=== PATIENT | female | born 1970 | race Two or more races ===

== ENCOUNTER 2017-05-06 13:30 | Day surgery (SDC) | payer OTHER ==
[~2017-05-06] VITALS: Ht 157.5 cm; Wt 77.3 kg
[2017-05-06 13:59] VITALS: Ht 157.5 cm; Wt 77.3 kg
[2017-05-06] MEDS ORDERED: FERR325T5 PO (14:14)
[2017-05-06] MEDS ORDERED: VALS160T26 PO (14:14)
[2017-05-06] MEDS ORDERED: TRAM50TA2 PO (14:14)
[2017-05-06] MEDS ORDERED: ASPI81TA3 PO (14:14)
[2017-05-06] MEDS ORDERED: LATA1OIL MC (14:14)
[2017-05-06] MEDS ORDERED: ATOR80TA75 PO (14:14)
[2017-05-06 14:21] VITALS: BP 126/75; PULSE 83; RESP 20
[2017-05-06] MEDS ORDERED: LIDOCAINE 2% JELLY 5 ML ONE ×2 (14:28)
[2017-05-06] MEDS ORDERED: FENTAnyl 50 MCG/ML VIAL ONE (15:07)
[2017-05-06] MEDS ORDERED: MIDAZOLAM 1 MG/ML 2 ML INJ ONE ×2 (15:07)
[2017-05-06 15:19] VITALS: BP 102/77; PULSE 76; RESP 20
--- NOTE | 2017-05-06 21:04 | GILP ---
DATE OF PROCEDURE: PREOPERATIVE DIAGNOSES: 1. Rectal pain. 2. Rectal bleeding. PROCEDURE DONE: Colonoscopy and biopsy. POSTOPERATIVE DIAGNOSES: 1. Large external hemorrhoids, almost grade II. 2. Pain upon rectal exam. 3. Internal hemorrhoids, grade I. SPECIMENS: A small 2 mm nodular area was removed by biopsy at rectosigmoid, probably diminutive morro yp. DESCRIPTION OF PROCEDURE: The patient was put in left lateral decubitus after obtaining informed co nsent. The patient was sedated, monitored on oximetry, EKG, blood pressure. IV Versed 3 mg and 75 mcg of fentanyl given. For the anorectal area, I applied 2% Xylocaine jelly to reduce her pain. Th en I advanced the Olympus video colonoscope all the way to cecum. Ileocecal valve, appendiceal open ing identified. Cecum, ascending colon, transverse colon, descending colon, sigmoid colon, and rect um including retroflexion normal. By retroflexion, only grade I internal hemorrhoids noted. Upon r emoval of scope, external hemorrhoids also were photographed. They were grade II. Postop, patient had no complication. I advised her to apply Proctocort or Anusol suppositories at night and Sitz ba th. If her pain continues in the rectum and bleeding, consider surgical opinion for hemorrhoidectom y. Await for biopsy report on the polyp I removed, which I think is very small and diminutive. I w ill see her in few weeks. Dictated By: AUNDREA SANTOS/LINDA Conf#: [id number] DID#: [id number] CC: AUNDREA CORTEZ M.D.; Messi Francisco;*End*
== END 2017-05-06 16:13 | disposition home or self-care (01) ==
LOC: GIL 13:30
PROVIDERS: ATTEND Internal Medicine
DX: D12.7 Benign neoplasm of rectosigmoid junction (principal); K64.1 Second degree hemorrhoids
CPT/HCPCS: 45380; 84702; 88305; J2250; J3010; Z7610

== ENCOUNTER 2017-07-08 12:57 | Day surgery (SDC) | payer OTHER ==
[~2017-07-08] VITALS: Ht 157.5 cm; Wt 80.0 kg
[2017-07-08] VITALS (9 sets, daily range): BP systolic 118–155; BP diastolic 65–85; PULSE 80–105; RESP 17–22; Ht 157.5 cm; Wt 80.0 kg
[~2017-07-08 12:57] MED LIST: ASPI81TA3 PO; ATOR80TA75 PO; CEFAZOLIN 2 GM/50 ML (PMX) 50 ML IVPB ONE; DESFLURANE 15 MIN ONE; EPHEDrine SULFATE 50 MG/5 ML SYG ONE; FENTAnyl 50 MCG/ML VIAL IV PRN; FERR325T5 PO; LABETALOL HCL 20MG INJ IV PRN; LATA1OIL MC; MEPERIDINE 25 MG INJ IV PRN; METOCLOPRAMIDE 10 MG INJ IV PRN; MIDAZOLAM 1 MG/ML 2 ML INJ IV PRN; ONDANSETRON 4 MG INJ IV PRN; SOD CHLORIDE 0.9% 1,000 ML IV ONE; TRAM50TA2 PO; VALS160T26 PO; hydrALAzine 20 MG INJ IV PRN
[2017-07-08] MEDS ORDERED: PROPOFOL 20 ML ONE (15:52)
[2017-07-08] MEDS ORDERED: MIDAZOLAM 1 MG/ML 2 ML INJ ONE (15:52)
[2017-07-08] MEDS ORDERED: ROCURONIUM 50 MG INJ ONE (15:52)
[2017-07-08] MEDS ORDERED: METOCLOPRAMIDE 10 MG INJ ONE (15:53)
[2017-07-08] MEDS ORDERED: BUPIVACAINE 0.25% (MPF) 30 ML INJ ONE (15:56)
[2017-07-08] MEDS ORDERED: CEFAZOLIN 1 GM INJ ONE (16:08)
[2017-07-08] MEDS ORDERED: FENTAnyl 50 MCG/ML VIAL ONE (16:44)
[2017-07-08] MEDS ORDERED: METOPROLOL 5 MG INJ ONE (17:01)
[2017-07-08] MEDS ORDERED: HYDROmorphONE 2 MG/ML SYG ONE (17:02)
[2017-07-08] MEDS ORDERED: GLYCOPYRROLATE 0.4 MG INJ ONE (17:11)
[2017-07-08] MEDS ORDERED: NEOSTIGMINE 3 MG/3 ML SYRINGE ONE (17:11)
[2017-07-08] MEDS ORDERED: ONDANSETRON 4 MG INJ ONE (17:14)
--- NOTE | 2017-07-08 17:23 | OPR ---
Date/Time of Note Date/Time of Note DATE: 07/08/17 TIME: 17:16 Operative Report Procedure Date: Jul 08, 2017 Preoperative Diagnosis hemorrhoids internal and external and left posterior perianal mass Postoperative Diagnosis same Operation Performed 1. proctoplasty for prolapse of mucous membranes cpt code 90310 2. ligation of internal hemorrhoids,multiple procedures cpt code 25202 3. rigid proctoplasty 4. resection of right posterior perianal mass 1 cm 5. therapeutic injection of subcutaneous marcaine cpt code 24045 Surgeon: Rojelio MENDES Specimens right posterior perianal mass Indications This is a 47-year-old female with internal/external hemorrhoids and right posterior perianal mass. Patient request surgical excision of the perianal mass and surgical repair of the hemorrhoids. Risks alternatives benefits and percent were discussed the patient. Patient's best understanding consents to the operation. Procedure Description Patient taken to the OR and prepped and draped in usual sterile fashion. Surgical time was performed. IV antibiotics were given. Rigid proctoscopy is performed. There is no evidence of any masses or obstructive lesions. THC device is used to place [id number] 2-0 Vicryl sutures in multiple region circumferentially around the internal hemorrhoids in order to ligate the internal hemorrhoids. Attention is then paid to the proctoplasty portion. Proctoplasty was performed by running the 2-0 Vicryl for multiple regions and circumferential manner down to the dentate line and the dentate line was then tied down to the proximal region. This performs a proctoplasty. The anal canal was then rechecked for patency. There is no evidence of any stricture or obstruction. Attention was then paid to the right posterior perianal mass. This area was grasped with forceps and resected using 15 blade. Cautery was used for hemostasis. Therapeutic subcutaneous injection along along the mucosa and along the incision site with Marcaine is used. Dry dressings were applied. Rojelio MENDES Jul 08, 2017 17:23
[2017-07-08] MEDS ORDERED: HYDROCODONE/APAP (5/325) TAB PO ONE (17:30)
[2017-07-08] MEDS ORDERED: KETOROLAC 30 MG INJ ONE (17:41)
[2017-07-08] MEDS ORDERED: DIPHENHYDRAMINE 50 MG INJ IV PRN (18:00)
[2017-07-08] MEDS ORDERED: KETOROLAC 30 MG INJ IV PRN (18:00)
== END 2017-07-08 18:56 | disposition home or self-care (01) ==
LOC: SDS 12:57
PROVIDERS: ATTEND Surgery
DX: D22.5 Melanocytic nevi of trunk (principal); K64.8 Other hemorrhoids; K64.4 Residual hemorrhoidal skin tags; K62.3 Rectal prolapse; I10 Essential (primary) hypertension
CPT/HCPCS: 45505; 46946; 84703; 88307; J0690; J1170; J1200; J1885; J2250; J2405; J2710; J2765; J3010; Z7512; Z7610

== ENCOUNTER 2018-05-02 12:53 | Day surgery (SDC) | END 2018-05-02 18:00 | disposition home or self-care (01) ==